=== PATIENT | male | born 1990 | race American Indian/Alaskan Native ===

== ENCOUNTER 2016-08-16 16:20 | Inpatient (IN) | payer MEDICAID ==
--- NOTE | 2016-08-16 16:40 | ED PDOC ---
Arrival/HPI - General Historian: Patient, EMS - General Time Seen by Provider: 08/16/16 16:21 - History of Present Illness Narrative History of Present Illness (Text): 08/16/16 16:37 26 y/o male, no significant pmh, nkda, biba due to send by the psychiatrist for admission. Pt. stated that he has been feeling very anxious and depressed with suicidal ideation, no homicidal ideation, no contact center specialist or visual hallucination, no numbness or tingling, no night sweat, no dizziness, no diarrhea, no other medical or psychological complaints. (Gene Moreno) Past Medical History - Provider Review Nursing Documentation Reviewed: Yes Family/Social History - Physician Review Nursing Documentation Reviewed: Yes Family/Social History: Unknown Family HX Allergies/Home Meds Allergies/Adverse Reactions: Allergies No Known Allergies Allergy (Verified 08/18/16 00:32) Home Medications: Home Meds Medication Instructions Recorded Confirmed No Known Home Med 08/18/16 08/18/16 Review of Systems - Review of Systems Constitutional: absent: Fatigue, Fevers Eyes: absent: Vision Changes ENT: absent: Hearing Changes Respiratory: absent: Cough, Sputum Cardiovascular: absent: Chest Pain Gastrointestinal: absent: Abdominal Pain, Diarrhea, Nausea, Vomiting Skin: absent: Rash, Pruritis, Skin Lesions, Laceration, Abscess, Ulcer, Cellulitis Neurological: absent: Headache, Dizziness, Focal Weakness, Gait Changes, Speech Changes, Facial Droop, Disequilibrium, Seizure Psychiatric: Anxiety, Depression, Suicidal Ideation Physical Exam - Systems Exam Head: Present: Atraumatic, Normocephalic Pupils: Present: PERRL Extroacular Muscles: Present: EOMI Conjunctiva: Present: Normal Mouth: Present: Moist Mucous Membranes Neck: Present: Normal Range of Motion Respiratory/Chest: Present: Clear to Auscultation, Good Air Exchange. No: Respiratory Distress, Accessory Muscle Use Cardiovascular: Present: Regular Rate and Rhythm, Normal S1, S2. No: Murmurs Abdomen: Present: Normal Bowel Sounds. No: Tenderness, Distention, Peritoneal Signs, Rebound, Guarding Back: Present: Normal Inspection Upper Extremity: Present: Normal Inspection. No: Cyanosis, Edema Lower Extremity: Present: Normal Inspection. No: Edema Neurological: Present: GCS=15, Speech Normal, Motor Func Grossly Intact, Gait Normal, Memory Normal Skin: Present: Warm, Dry, Normal Color. No: Rashes Psychiatric: Present: Alert, Oriented x 3, Normal Insight, Normal Concentration , Anxious, Depressed Mood, Suicidal Ideation Vital Signs Temp Pulse Resp BP Pulse Ox 08/16/16 23:01 102 H 20 135/70 100 08/16/16 22:49 101 H 20 127/74 100 08/16/16 16:22 98.8 F 118 H 20 131/77 100 Medical Decision Making - Lab Interpretations I have reviewed the lab results: Yes Interpretation: No clinic. lab abnormalty - RAD Interpretation Contractor General Engineering: Radiologist - EKG Interpretation Interpreted by ED Physician: Yes Type: 12 lead EKG Comparison: No previous EKG avail. ED Course and Treatment: I was available for consultation during PA evaluation. The chart was reviewed by me, and I agree with disposition. The documented history was done by the physician acute care certified nursing assistant. The documented physical exam was done by the physician acute care certified nursing assistant. The documented procedures were done by the physician acute care certified nursing assistant. ( Scot Levin) 08/16/16 16:40 -labs/us/uds -ekg/chest x-ray -will medically clear for PES. 08/16/16 16:59 -Pt. is agitated, physically attacking the staffs and doesn't wanna reason, restraints with limited relief, for the patient's safety and staff safety, haldol and ativan ordered. 08/16/16 20:59 -EKG: Sinus Tachycardia @ 116 BPM, no ST elevation or depression, no T wave in version, no previous ekg available for comparison. -Chest x-ray show no active disease -Labs are non-significant -UA show no UTI -UDS show no acute findings. -Pt. is awake and calmed now, restraints removed coupled hours ago. -Pt. is medically clear and stable for the PES evaluation, PES paged. 08/16/16 22:40 -Pt. evaluated by the PES, agreed to be signed in. As per PES, pt. needs to be admitted psychiatrically for major depression but there is no bed in the [place]. Therefore, he will be waiting for the bed for [facility]. 08/16/16 23:11 -As per PES, there is a bed for him in the behavioral health floor in [place]. (Gene Moreno) - Lab Interpretations Lab Results: 08/16/16 18:49 08/16/16 18:49 Lab Results 08/16/16 20:00: Urine Color Yellow, Urine Appearance Sl cloudy, Urine pH 6.0, Ur Specific [place] >= 1.030, Urine Protein 30 H, Urine Glucose (UA) Negative, Urine Ketones Trace H, Urine Blood Negative, Urine Nitrate Negative, Urine Bilirubin Small H, Urine Urobilinogen 0.2, Ur Leukocyte Esterase Negative, Urine RBC 1 - 3, Urine WBC 2 - 5, Ur Epithelial Cells 0 - 2, Urine Bacteria Rare , Urine Opiates Screen Negative, Urine Methadone Screen Negative, Ur Barbiturates Screen Negative, Ur Phencyclidine Scrn Negative, Ur Amphetamines Screen Negative, U Benzodiazepines Scrn Negative, U Oth Cocaine Metabols Negative, U Cannabinoids Screen Negative 08/16/16 18:49: WBC 7.9, RBC 4.17, Hgb 13.3 L, Hct 37.9 L, MCV 90.9, MCH 31.9, MCHC 35.1, RDW 12.8, Plt Count 342, MPV 8.7, Gran % 69.6 H, Lymph % (Auto) 19.4 L, [place] % (Auto) 10.6 H, Eos % (Auto) 0.0 L, Baso % (Auto) 0.4, Gran # 5.49, Lymph # 1.5, [place] # 0.8 H, Eos # 0.0, Baso # 0.03, Sodium 137, Potassium 3.7, Chloride 99, Carbon Dioxide 28, Anion Gap 14, BUN 15, Creatinine 1.1, Est GFR ( Amer) > 60, Est GFR (Non-Af Amer) > 60, Random Glucose 98, Calcium 9.6, Total Bilirubin 0.6, AST 99 H, ALT 28, Alkaline Phosphatase 74, Total Protein 7.9, Albumin 4.4, Globulin 3.5, Albumin/Globulin Ratio 1.3, Salicylates < 1 L, Acetaminophen < 10.0 L, Alcohol, Quantitative < 10 - RAD Interpretation Radiology Orders: 08/16/16 17:10 CHEST PORTABLE [RAD] Stat no active disease (Gene Moreno) - EKG Interpretation EKG Interpretation (Text): 08/16/16 18:29 EKG: Sinus Tachycardia @ 116 BPM, no ST elevation or depression, no T wave in version, no previous ekg available for comparison. (Gene Moreno) - Medication Orders Current Medication Orders: Discontinued Medications Acetaminophen (Tylenol 325mg Tab) 650 mg PO Q6H PRN PRN Reason: Pain, Mild (1-3) Al Hydrox/Mg Hydrox/Simethicone (Maalox Plus 30 Ml) 30 ml PO DAILY PRN PRN Reason: Upset Stomach Haloperidol Lactate (Haldol) Confirm Administered Dose 5 mg .ROUTE .STK-MED ONE Stop: 08/16/16 17:00 Last Admin: 08/16/16 17:48 Dose: Haloperidol Lactate (Haldol) 5 mg IM STAT STA PRN Reason: Protocol Stop: 08/16/16 17:09 Last Admin: 08/16/16 17:47 Dose: 5 MG Behavioural Document 08/16/16 17:47 EQ (Rec: 08/16/16 17:47 EQ [email or web address] Maintenance Maintenance Dose No Nonmedicinal Nonmedicinal Interventions Redirect Behavior Behavior for Medication: Continuous crying/screaming/ yelling Continuous pacing/restlessness Dangers to self/others Hallucinations/paranoid/ delusions/extreme fear IM Administration Charges Document 08/16/16 17:47 EQ (Rec: 08/16/16 17:47 EQ [email or web address] Charges for Administration # of IM Administrations 1 Re-Assess: Reassess Psych Meds Document 08/17/16 03:50 TW (Rec: 08/17/16 03:50 TW [id number]) Reassess Psych Med Effective Lorazepam (Ativan) Confirm Administered Dose 2 mg .ROUTE .STK-MED ONE Stop: 08/16/16 17:01 Last Admin: 08/16/16 17:49 Dose: Lorazepam (Ativan) 2 mg IM ONCE ONE PRN Reason: Protocol Stop: 08/16/16 17:09 Last Admin: 08/16/16 17:00 Dose: 2 MG Behavioural Document 08/16/16 17:00 EQ (Rec: 08/16/16 17:47 EQ [email or web address]) Maintenance Maintenance Dose No Nonmedicinal Nonmedicinal Interventions Redirect Behavior Behavior for Medication: Biting/Hitting/Throwing/ Kicking Continuous crying/screaming/ yelling Continuous pacing/restlessness Dangers to self/others IM Administration Charges Document 08/16/16 17:00 EQ (Rec: 08/16/16 17:47 EQ [email or web address]) Injection Site MAR Injection Site Left Arm Charges for Administration # of IM Administrations 1 Re-Assess: Reassess Psych Meds Document 08/17/16 03:49 TW (Rec: 08/17/16 03:49 TW [id number]) Reassess Psych Med Effective Lorazepam (Ativan) 2 mg PO HS LOUISE PRN Reason: Protocol Last Admin: 08/18/16 02:57 Dose: Not Given Non-Admin Reason: Patient Refused Lorazepam (Ativan) 2 mg PO Q6H PRN; Protocol PRN Reason: Agitation Lorazepam (Ativan) 2 mg IM Q6H PRN; Protocol PRN Reason: Agitation Magnesium Hydroxide (Milk Of Magnesia) 30 ml PO DAILY PRN PRN Reason: Constipation Quetiapine Fumarate (Seroquel) 50 mg PO HS LOUISE PRN Reason: Protocol Last Admin: 08/18/16 02:58 Dose: Not Given Non-Admin Reason: Patient Refused Ziprasidone (Geodon Cap) 20 mg PO Q6H PRN; Protocol PRN Reason: Agitation Last Admin: 08/17/16 17:48 Dose: 20 MG Behavioural Document 08/17/16 17:48 RGO (Rec: 08/17/16 17:48 RGO [id number]) Maintenance Maintenance Dose No Nonmedicinal Nonmedicinal Interventions Therapeutic Communication Behavior Behavior for Medication: Anxiety Re-Assess: Reassess Psych Meds Document 08/17/16 19:42 TW (Rec: 08/17/16 19:42 TW [id number]) Reassess Psych Med Effective Ziprasidone (Geodon Inj) 20 mg IM Q6H PRN; Protocol PRN Reason: Agitation Zolpidem Tartrate (Ambien) 10 mg PO HS PRN; Protocol PRN Reason: Insomnia - PA / INSTRUCTIONAL SERVICES SPECIALIST / Resident Statement MD/DO has reviewed & agrees with the documentation as recorded. Disposition/Present on Arrival - Present on Arrival Any Indicators Present on Arrival: No History of DVT/PE: No History of Uncontrolled Diabetes: No Urinary Catheter: No History of Decub. Ulcer: No - Disposition Have Diagnosis and Disposition been Completed?: Yes Disposition Time: 21:00 Patient Plan: Admission - Disposition Diagnosis: Major depression Disposition: HOSPITALIZED Condition: STABLE
[2016-08-16 17:06] VITALS: BMI 23.5
[2016-08-16 17:35] VITALS: O2SAT 100
[2016-08-16 18:56] LABS: ADD MANUAL DIFF? NO
[2016-08-16 19:00] LABS: BASO # 0.03 K/mm3 (0.0-2.0); BASO % 0.4 % (0.0-3.0); GRAN # 5.49 (1.4-6.5); GRAN % 69.6 % (50.0-68.0); HEMATOCRIT 37.9 % (42.0-52.0); LYMPH # 1.5 (1.2-3.4); LYMPH % 19.4 % (22.0-35.0); MEAN CELL VOLUME 90.9 fL (80.0-105.0); MEAN CORPUSCULAR HEMOGLOBIN 31.9 pg (25.0-35.0); MEAN CORPUSCULAR HGB CONC 35.1 g/dl (31.0-37.0); MEAN PLATELET VOLUME 8.7 fl (7.0-11.0); MONO # 0.8 (0.1-0.6); MONO % 10.6 % (1.0-6.0); PLATELET COUNT 342 10^3/uL (120.0-450.0); RED CELL DISTRIBUTION WIDTH 12.8 % (11.5-14.5); WHITE BLOOD COUNT 7.9 10^3/ul (4.5-11.0)
[2016-08-16 19:09] LABS: ALB/GLOB RATIO 1.3 (1.1-1.8); ALKALINE PHOSPHATASE 74 U/L (38-133); ALT/SGPT 28 U/L (7-56); AST/SGOT 99 U/L (15-59); BILIRUBIN,TOTAL 0.6 mg/dL (0.2-1.3); BLOOD UREA NITROGEN 15 mg/dL (7-21); CALCIUM 9.6 mg/dL (8.4-10.5); CARBON DIOXIDE 28 mmol/L (21-33); CHLORIDE 99 mmol/L (98-107); GFR AFRICAN-AMERICAN > 60; GLUCOSE,RANDOM 98 mg/dL (70-110); POTASSIUM 3.7 mmol/L (3.6-5.0); SODIUM 137 mmol/L (132-148); TOTAL PROTEIN 7.9 g/dL (5.8-8.3)
[2016-08-16 20:12] LABS: URINE BILIRUBIN SMALL (NEGATIVE); URINE BLOOD NEGATIVE (NEGATIVE); URINE GLUCOSE (UA) NEGATIVE (NEGATIVE); URINE KETONE TRACE mg/dL (NEGATIVE); URINE LEUKOCYTE ESTERASE NEGATIVE Leu/uL (NEGATIVE); URINE PROTEIN 30 mg/dL (<30 mg/dL); URINE UROBILINOGEN 0.2 E.U./dL (<1 E.U./dL)
[2016-08-16 20:29] LABS: URINE APPEARANCE SL CLOUDY (CLEAR); URINE COLOR YELLOW (YELLOW)
[2016-08-16 21:07] LABS: URINE BACTERIA RARE (NEG); URINE EPITHELIAL CELLS 0 - 2 /hpf (0-5)
[2016-08-17] MEDS ORDERED: Alum-Mag Hydrox-Simethicone Susp (30 mL) PO PRN (01:40)
[2016-08-17] MEDS ORDERED: Magnesium Hydroxide Susp 30 ml UD PO PRN (01:40)
[2016-08-17 08:25] LABS: CHOLESTEROL 159 mg/dL (130-200); GLUCOSE,FASTING 97 mg/dL (65-110)
--- NOTE | 2016-08-17 08:30 | RAD ---
HISTORY: medical clearance COMPARISON: No prior. FINDINGS: LUNGS: No active pulmonary disease. PLEURA: No significant pleural effusion identified, no pneumothorax apparent. CARDIOVASCULAR: Normal. OSSEOUS STRUCTURES: No significant abnormalities. VISUALIZED UPPER ABDOMEN: Normal. OTHER FINDINGS: None. IMPRESSION: No active disease.
[2016-08-17 08:50] LABS: FREE T4 2.16 ng/dL (0.78-2.19)
[2016-08-17 09:04] LABS: THYROID STIMULATING HORMONE 2.85 mIU/mL (0.46-4.68)
--- NOTE | 2016-08-17 15:56 | PCM.PSYCH ---
Initial Psychiatric Evaluation - Initial Psychiatric Evaluation Type of Admission: Voluntary Legal Status: Capacity (patient has capacity to sign consent for treatment) Chief Complaint (in patient's own words): 'I'm here from yesterday, it means I'm here for 48 hours already" Patient's Reaction to Hospitalization: patient was admitted to the psychiatric inpatient unit for evaluation and stabilization of psychotic, disorganized, agitated behavior. 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 in ED pt said he is suicidal, denied during the interview. In the emergency room patient was agitated did not make any sense, was physically aggressive toward staff, needed to be medicated with Haldol twice IM plus Ativan 2 IM needed to be in restraint. After medicated patient sign consent for treatment "I wanted to have treatment for my addiction to Molley". patient was sleeping majority of the time at the morning time when patient woke up patient was demanding to be discharged immediately. As per report patient presented to be disorganized was difficulty taking on the floor as well as was urinating on the floor. Patient was examined at the treatment team maintained room patient presented to have poor personal hygiene fear ADLs patient is malodorous.. Patient obviously is confused, had unsteady gait, patient was increased, irritable, seems to be on board with all of the questions. Patient made the statement if he was admitted to the psychiatric inpatient unit yesterday it missed that he is in the hospital already to for 24 hours, when this typewriter operator automatic educated patient about 48 hour notice patient became agitated, was demanding to be discharged immediately, was pacing, and was looking how to elope from the unit. Patient reported that 2 weeks ago he had a new baby girl and present moment she is under custody of his mother. Patient reported to be not depressed, denied thoughts of killing himself or others, denied intent or plan. Patient obviously is psychotic and disorganized and has poor impulse control. Patient denied feeling anxious denied panic attacks denied history of abuse. Patient denied feeling anxious denied panic attacks. past psych h/o: denied Medical h/o: denied -EKG: Sinus Tachycardia @ 116 BPM, no ST elevation or depression, no T wave in version, no previous ekg available for comparison. -Chest x-ray show no active disease -Labs are non-significant -UA show no UTI -UDS show no acute findings. 08/16/16 18:49 08/16/16 18:49 Lab Results 08/17/16 07:45: Fasting Glucose 97, Triglycerides 46, Cholesterol 159, LDL Cholesterol Direct 104, HDL Cholesterol 46, Free T4 2.16, TSH 3rd Generation 2.85 08/16/16 20:00: Urine Color Yellow, Urine Appearance Sl cloudy, Urine pH 6.0, Ur Specific [place] >= 1.030, Urine Protein 30 H, Urine Glucose (UA) Negative, Urine Ketones Trace H, Urine Blood Negative, Urine Nitrate Negative, Urine Bilirubin Small H, Urine Urobilinogen 0.2, Ur Leukocyte Esterase Negative, Urine RBC 1 - 3, Urine WBC 2 - 5, Ur Epithelial Cells 0 - 2, Urine Bacteria Rare , Urine Opiates Screen Negative, Urine Methadone Screen Negative, Ur Barbiturates Screen Negative, Ur Phencyclidine Scrn Negative, Ur Amphetamines Screen Negative, U Benzodiazepines Scrn Negative, U Oth Cocaine Metabols Negative, U Cannabinoids Screen Negative 08/16/16 18:49: WBC 7.9, RBC 4.17, Hgb 13.3 L, Hct 37.9 L, MCV 90.9, MCH 31.9, MCHC 35.1, RDW 12.8, Plt Count 342, MPV 8.7, Gran % 69.6 H, Lymph % (Auto) 19.4 L, [place] % (Auto) 10.6 H, Eos % (Auto) 0.0 L, Baso % (Auto) 0.4, Gran # 5.49, Lymph # 1.5, [place] # 0.8 H, Eos # 0.0, Baso # 0.03, Sodium 137, Potassium 3.7, Chloride 99, Carbon Dioxide 28, Anion Gap 14, BUN 15, Creatinine 1.1, Est GFR ( Amer) > 60, Est GFR (Non-Af Amer) > 60, Random Glucose 98, Calcium 9.6, Total Bilirubin 0.6, AST 99 H, ALT 28, Alkaline Phosphatase 74, Total Protein 7.9, Albumin 4.4, Globulin 3.5, Albumin/Globulin Ratio 1.3, Salicylates < 1 L, Acetaminophen < 10.0 L, Alcohol, Quantitative < 10 Vital Signs Temp Pulse Resp BP Pulse Ox 08/17/16 03:50 14 08/16/16 23:01 102 H 20 135/70 100 08/16/16 22:49 101 H 20 127/74 100 08/16/16 16:22 98.8 F 118 H 20 131/77 100 present moment there is no option to have meaningful conversation because patient is agitated. Current Medications: Active Medications Generic Name Dose Route Start Last Admin Trade Name Freq PRN Reason Stop Dose Admin Acetaminophen 650 mg 08/17/16 01:40 Tylenol 325mg Tab PO Q6H PRN Pain, Mild (1-3) Al Hydrox/Mg Hydrox/Simethicone 30 ml 08/17/16 01:40 Maalox Plus 30 Ml PO DAILY PRN Upset Stomach Lorazepam 2 mg 08/17/16 01:44 08/17/16 02:00 Ativan PO 2 mg HS LOUISE Administration Protocol Lorazepam 2 mg 08/17/16 01:41 Ativan PO Q6H PRN Agitation Protocol Lorazepam 2 mg 08/17/16 01:41 Ativan IM Q6H PRN Agitation Protocol Magnesium Hydroxide 30 ml 08/17/16 01:40 Milk Of Magnesia PO DAILY PRN Constipation Quetiapine Fumarate 50 mg 08/17/16 01:42 08/17/16 02:00 Seroquel PO 50 mg HS LOUISE Administration Protocol Ziprasidone 20 mg 08/17/16 01:41 Geodon Cap PO Q6H PRN Agitation Protocol Ziprasidone 20 mg 08/17/16 01:41 Geodon Inj IM Q6H PRN Agitation Protocol Zolpidem Tartrate 10 mg 08/17/16 01:41 Ambien PO HS PRN Insomnia Protocol Past Psychiatric History - Past Psychiatric History Previous Treatment History: None Prior Professional Help: see HPI Prior Psychiatric Treatment: see HPI [facility]: see HPI Duration: see HPI Nature of Treatment: see HPI Explanation of prior treatment: see HPI History of Abuse: see HPI History of ETOH/Drug Use: see HPI History of Family Illness: see HPI Pertinent Medical Hx (Current Medical&Sleep Prob, Allergies): Allergies Allergy/AdvReac Type Severity Reaction Status Date / Time No Known Allergies Allergy Verified 08/16/16 16:39 see HPI Review of Systems - Review of Systems Systems not reviewed;Unavailable: Acuity of Condition - EENT Eyes: As Per HPI Ears: As Per HPI Nose/Mouth/Throat: As Per HPI - Cardiovascular Cardiovascular: As Per HPI - Respiratory Respiratory: As Per HPI - Gastrointestinal Gastrointestinal: As Per HPI - Genitourinary Genitourinary: As Per HPI - Reproductive: Male Reproductive:Male: As Per HPI - Musculoskeletal Musculoskeletal: As Par HPI - Integumentary Integumentary: As Per HPI - Neurological Neurological: As Per HPI - Psychiatric Psychiatric: As Per HPI - Endocrine Endocrine: As Per HPI - Hematologic/Lymphatic Hematologic: As Per HPI Mental Status Examination - Personal Presentation Personal Presentation: Looks stated age - Affect Affect: Flat - Motor Activity Motor Activity: Violent, Psychomotor Agitation - Reliability in Providing Information Reliability in Providing Information: Poor, due to alteration in thoughts, Poor , due to altered mood, Poor, due to cognitve impairment - Speech Speech: Disorganized - Mood Mood: Neutral - Formal Thought Process Formal Thought Process: Other (disorganized) - Hallucinations/Delusions Delusions: Persecution - Obsessions/Compulsions Obsessions: None Compulsions: None - Cognitive Functions Orientation: Person, Place Sensorium: Alert Attention/Concentration: Easily distracted Abstract Thinking: [place] Estimate of Intelligence: Average Judgement: Imparied, as evidence by: Poor judgement, Imparied, as evidence by: Lack of insight into illness - Risk Risk: Suicidal, Homicidal, Diminished functioning - Limitations Limitations: Other (substance abuse) DSM 5 DX - DSM 5 DSM 5 Diagnosis: rule out schizophrenia spectrum disorder Rule out substance-induced psychosis synthetic drugs addiction - Recommended/Plan of Treatment Treatment Recommendations and Plan of Treatment: Milieu, structure, supportive therapy Patient submitted 48 hour notice today We'll give when necessary medications Seroquel at the nighttime for psychotic symptoms We will give when necessary medications Will call for collateral information from the family We'll monitor closely. Projected ELOS: 5days Prognosis: guarded Discharge Plan and Discharge Criteria: Pt will be not depressed or manic, will be more hopeful, will be not psychotic or anxious, will be tolerating medications well, will not have major side effects, will be able to function, will not pose threat to self or others. - Smoking Cessation Smoking Cessation Initiated: No Reason for not providing: pt is agitated
--- NOTE | 2016-08-17 18:53 | CARD ---
APPROVED REPORT EKG Measurement Heart [id number] <Conclusion> Sinus tachycardia Nonspecific T wave abnormality Abnormal ECG
[2016-08-18 07:18] VITALS: BP 122/72; PULSE 90; RESP 20; TEMP 98.7
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
== END 2016-08-18 10:48 | disposition left against medical advice (07) | DRG 746 ==
LOC: ED 16:20 → ERH 22:37 → PSYC 08-17 01:39
PROVIDERS: ADMIT Psychiatry & Neurology Psychiatry; ATTEND Psychiatry & Neurology Psychiatry
DX: F19.950 Other psychoactive substance use, unspecified with psychoactive substance-induced psychotic disorder with delusions (principal); F19.951 Other psychoactive substance use, unspecified with psychoactive substance-induced psychotic disorder with hallucinations; R26.81 Unsteadiness on feet